=== PATIENT | female | born 1975 | race Caucasian/White ===

== ENCOUNTER 2016-12-08 15:11 | Inpatient (IN) | payer OTHER ==
[~2016-12-08] VITALS: Ht 160 cm; Wt 84.1 kg
[2016-12-08] MEDS ORDERED: SODIUM CHLORIDE 0.9% 1,000ML IVBOLUS ONE (15:30)
[2016-12-08] MEDS ORDERED: SODIUM CHLORIDE FLUSH 10ML SYR IVF ONE (15:30)
[2016-12-08] MEDS ORDERED: ONDANSETRON 2MG/ML, 2ML IVPush ONE (15:30)
[2016-12-08 16:41] LABS: HEMOGLOBIN 13.6 g/dL (11.7-16.4); WHITE BLOOD COUNT 12.7 x10^3/uL (3.4-10)
[2016-12-08 16:43] LABS: ASPARTATE AMINO TRANSFERASE 21 U/L (15-37); BLOOD UREA NITROGEN 5 mg/dL (7-18)
[2016-12-08] MEDS ORDERED: ONDANSETRON 2MG/ML, 2ML ONE (18:14)
[2016-12-08] MEDS ORDERED: morphine SULFATE 10 MG/ML, 1ML ONE ×2 (18:23→20:43)
[2016-12-08 18:28] LABS: PATH.CAST-FLAG NOT PRESENT; SPERM-FLAG NOT PRESENT; SRC-FLAG NOT PRESENT; XTAL-FLAG NOT PRESENT; YLC-FLAG NOT PRESENT
[2016-12-08] MEDS: MORPHINE SULFATE 4 MG/ML, 1ML IVPush PRN ×2 (18:30→20:46)
[2016-12-08] MEDS ORDERED: OMNIPAQUE 350 MG/ML, 100ML BOTTLE ONE (19:22)
[2016-12-08] MEDS ORDERED: LABETALOL 5MG/ML, 20ML IVPush PRN (21:00)
[2016-12-08] MEDS ORDERED: ACETAMINOPHEN 325 MG TABLET PO PRN (21:00)
[2016-12-08] MEDS: NICOTINE 14MG/24 HR PATCH.TD24 TD SCH (21:00)
[2016-12-08] MEDS ORDERED: TEMAZEPAM 15 MG CAPSULE PO PRN (21:00)
[2016-12-08] MEDS: D5%-0.45NACL+KCL 20MEQ 1,000 ML IV SCH (22:26)
[2016-12-08 22:50] VITALS: BP 132/81
[2016-12-08] MEDS: FAMOTIDINE 20 MG/2 ML IVPush SCH (23:32)
[2016-12-08] MEDS: morphine SULFATE 10 MG/ML, 1ML IVPush PRN (23:41)
[2016-12-09] MEDS: morphine SULFATE 10 MG/ML, 1ML IVPush PRN ×6 (02:46→20:34)
[2016-12-09 04:00] VITALS: BP 122/69
[2016-12-09 04:36] LABS: HEMATOCRIT 34.3 % (34.6-47.8); HEMOGLOBIN 11.8 g/dL (11.7-16.4); WHITE BLOOD COUNT 8.2 x10^3/uL (3.4-10)
[2016-12-09 04:49] LABS: BLOOD UREA NITROGEN 4 mg/dL (7-18)
[2016-12-09 04:54] LABS: ASPARTATE AMINO TRANSFERASE 35 U/L (15-37)
[2016-12-09] MEDS: D5%-0.45NACL+KCL 20MEQ 1,000 ML IV SCH (06:01)
[2016-12-09] MEDS: FAMOTIDINE 20 MG/2 ML IVPush SCH ×2 (09:01→20:30)
[2016-12-09 13:08] LABS: HIV 1&2 ANTIBODY SCREEN Nonreactive (Nonreactive); HIV-1 p24 ANTIGEN Nonreactive (Nonreactive)
[2016-12-09 13:27] LABS: HEP B SURF. AB < 3.1 mIU/mL (0.0-10.0)
[2016-12-09 15:24] LABS: RAPID INFLUENZA A Negative (Negative); RAPID INFLUENZA B Negative (Negative)
[2016-12-09] MEDS: SODIUM CHLORIDE 0.9% 1,000 ML IV SCH (20:31)
[2016-12-09] MEDS: NICOTINE 14MG/24 HR PATCH.TD24 TD SCH (21:00)
[2016-12-10 03:24] LABS: HEMATOCRIT 32.3 % (34.6-47.8); HEMOGLOBIN 11.1 g/dL (11.7-16.4); WHITE BLOOD COUNT 7.7 x10^3/uL (3.4-10)
[2016-12-10 03:26] LABS: ASPARTATE AMINO TRANSFERASE 20 U/L (15-37); BLOOD UREA NITROGEN 4 mg/dL (7-18)
[2016-12-10] MEDS: morphine SULFATE 10 MG/ML, 1ML IVPush PRN ×3 (03:26→11:22)
[2016-12-10 04:00] VITALS: BP 120/62
[2016-12-10] MEDS: SODIUM CHLORIDE 0.9% 1,000 ML IV SCH (05:41)
[2016-12-10] MEDS: FAMOTIDINE 20 MG/2 ML IVPush SCH ×2 (09:22→21:46)
[2016-12-10] MEDS: HYDROcodone/APAP 5/325 TABLET PO PRN ×3 (14:15→22:07)
[2016-12-10 17:51] VITALS: BP 119/72
[2016-12-10 19:22] VITALS: BP 105/70
[2016-12-10] MEDS: NICOTINE 14MG/24 HR PATCH.TD24 TD SCH (21:00)
[2016-12-11 01:34] VITALS: BP 113/74
[2016-12-11] MEDS: HYDROcodone/APAP 5/325 TABLET PO PRN ×4 (04:54→18:04)
[2016-12-11 05:49] LABS: HEMATOCRIT 31.8 % (34.6-47.8); HEMOGLOBIN 10.9 g/dL (11.7-16.4); WHITE BLOOD COUNT 6.3 x10^3/uL (3.4-10)
[2016-12-11 06:02] LABS: BLOOD UREA NITROGEN 6 mg/dL (7-18)
[2016-12-11 06:05] LABS: ASPARTATE AMINO TRANSFERASE 26 U/L (15-37)
[2016-12-11] MEDS: morphine SULFATE 10 MG/ML, 1ML IVPush PRN ×4 (06:17→20:56)
[2016-12-11 07:14] VITALS: BP 111/72
[2016-12-11] MEDS: FAMOTIDINE 20 MG/2 ML IVPush SCH ×2 (09:04→20:55)
[2016-12-11 10:22] LABS: RHEUMATOID FACTOR SCREEN NEGATIVE (NEGATIVE)
[2016-12-11] MEDS ORDERED: MENING VAC A,C,Y,W-135 DIP/PF (MENACTRA AGES 2-55) 0.5 ML IM-VACC ONE (11:30)
[2016-12-11] MEDS ORDERED: FLU VACCINE PER PHARMACY IM ONE (11:30)
[2016-12-11] MEDS ORDERED: DIPHTHERIA-TETANUS ADULT 0.5ML IM-VACC ONE (11:30)
[2016-12-11] MEDS ORDERED: FLU VACC QS2017-18 (36MOS+) UP/PF 0.5 ML IM-VACC ONE (11:30)
[2016-12-11] MEDS ORDERED: [UNRECOGNIZED DRUG - OTHER] MC PRN (11:30)
[2016-12-11] MEDS ORDERED: PNEUMOC 13-VALENT VACC, 0.5 ML IM-VACC ONE (11:30)
[2016-12-11] MEDS ORDERED: HAEMOPH B POLY CONJ-TET TOX/PF 10 MCG/0.5 ML INJ IM-VACC ONE (11:30)
[2016-12-11] MEDS ORDERED: **MANDATORY - MENING,PNEU,HAEMOPH- PICK 1 OF EACH MC PRN (11:30)
[2016-12-11 12:31] VITALS: BP 122/80
[2016-12-11 13:10] LABS: ANA SCREEN POSITIVE (Negative)
[2016-12-11 19:40] VITALS: BP 117/79
[2016-12-11] MEDS: NICOTINE 14MG/24 HR PATCH.TD24 TD SCH (20:56)
[2016-12-12 00:06] LABS: ABSOLUTE CD 4 HELPER 646 /uL (359-1519); HEMATOCRIT 33.2 % (34.0-46.6); HEMOGLOBIN 11.1 g/dL (11.1-15.9); IMMATURE GRANULOCYTES 1 % (Not Estab.); MCH 29.6 pg (26.6-33.0); MCHC 33.4 g/dL (31.5-35.7); MCV 89 fL (79-97); MONOCYTES 10 % (Not Estab.); NEUTROPHILS 68 % (Not Estab.); NEUTROPHILS (ABSOLUTE) 4.6 x10E3/uL (1.4-7.0); PLATELETS 143 x10E3/uL (150-379); RBC 3.75 x10E6/uL (3.77-5.28); RDW 14.5 % (12.3-15.4); WBC 6.7 x10E3/uL (3.4-10.8)
[2016-12-12 01:26] VITALS: BP 126/82
[2016-12-12] MEDS: HYDROcodone/APAP 5/325 TABLET PO PRN ×5 (01:42→21:53)
[2016-12-12 07:30] VITALS: BP 122/84
[2016-12-12] MEDS: FAMOTIDINE 20 MG/2 ML IVPush SCH ×2 (09:19→19:52)
[2016-12-12 10:07] LABS: BARTONELLA HENSELAE IGG Negative titer (Neg:<1:320); BARTONELLA HENSELAE IGM Negative titer (Neg:<1:100); BARTONELLA QUINTANA IGM Negative titer (Neg:<1:100)
[2016-12-12 13:05] VITALS: BP 124/82
[2016-12-12] MEDS ORDERED: MAGNESIUM CITRATE 300ML ORAL SOL PO ONE (15:30)
[2016-12-12 19:35] VITALS: BP 146/87
[2016-12-12] MEDS: ONDANSETRON 2MG/ML, 2ML IVPush PRN (19:51)
[2016-12-12] MEDS: DOCUSATE 100 MG CAPSULE PO SCH (19:52)
[2016-12-12] MEDS: NICOTINE 14MG/24 HR PATCH.TD24 TD SCH (19:54)
[2016-12-12] MEDS ORDERED: OMNIPAQUE 350 MG/ML, 100ML BOTTLE ONE (21:33)
[2016-12-13 01:24] VITALS: BP 117/76
[2016-12-13] MEDS: HYDROcodone/APAP 5/325 TABLET PO PRN ×4 (05:16→19:42)
[2016-12-13 08:45] VITALS: BP 114/59
[2016-12-13] MEDS: FAMOTIDINE 20 MG/2 ML IVPush SCH ×2 (08:46→19:42)
[2016-12-13] MEDS: DOCUSATE 100 MG CAPSULE PO SCH ×2 (08:46→19:42)
[2016-12-13 13:34] VITALS: BP 105/70
[2016-12-13 20:13] VITALS: BP 133/73
[2016-12-13] MEDS: NICOTINE 14MG/24 HR PATCH.TD24 TD SCH (21:00)
[2016-12-14 01:54] VITALS: BP 124/80
[2016-12-14 07:27] VITALS: BP 176/75
[2016-12-14] MEDS: DOCUSATE 100 MG CAPSULE PO SCH ×2 (08:21→20:21)
[2016-12-14] MEDS: FAMOTIDINE 20 MG/2 ML IVPush SCH (08:21)
[2016-12-14] MEDS: HYDROcodone/APAP 5/325 TABLET PO PRN ×3 (09:17→20:21)
[2016-12-14 13:27] VITALS: BP 119/67
[2016-12-14] MEDS: ONDANSETRON 2MG/ML, 2ML IVPush PRN (14:21)
[2016-12-14 19:21] VITALS: BP 125/78
[2016-12-14] MEDS: FAMOTIDINE 20 MG TABLET PO SCH (20:21)
[2016-12-14] MEDS: NICOTINE 14MG/24 HR PATCH.TD24 TD SCH (20:22)
[2016-12-14] MEDS ORDERED: LABETALOL 5MG/ML, 20ML IVPush PRN (22:30)
[2016-12-14] MEDS ORDERED: ACETAMINOPHEN 325 MG TABLET PO PRN (22:30)
[2016-12-15 00:54] VITALS: BP 122/80
[2016-12-15 07:59] VITALS: BP 116/77
[2016-12-15] MEDS: FAMOTIDINE 20 MG TABLET PO SCH ×2 (08:41→20:54)
[2016-12-15] MEDS: DOCUSATE 100 MG CAPSULE PO SCH ×2 (08:41→20:54)
[2016-12-15] MEDS: HYDROcodone/APAP 5/325 TABLET PO PRN ×3 (08:41→20:54)
[2016-12-15 13:59] VITALS: BP 120/78
[2016-12-15] MEDS: ONDANSETRON 2MG/ML, 2ML IVPush PRN ×2 (14:46→20:54)
[2016-12-15 18:55] VITALS: BP 130/80
[2016-12-15] MEDS: NICOTINE 14MG/24 HR PATCH.TD24 TD SCH (21:00)
[2016-12-15] MEDS: morphine SULFATE 10 MG/ML, 1ML IVPush PRN (23:56)
[2016-12-16 02:27] VITALS: BP 118/81
[2016-12-16] MEDS: ONDANSETRON 2MG/ML, 2ML IVPush PRN ×3 (04:21→14:59)
[2016-12-16] MEDS: HYDROcodone/APAP 5/325 TABLET PO PRN ×3 (04:22→12:43)
[2016-12-16 07:45] VITALS: BP 107/68
[2016-12-16] MEDS: FAMOTIDINE 20 MG TABLET PO SCH ×2 (08:39→19:58)
[2016-12-16] MEDS: DOCUSATE 100 MG CAPSULE PO SCH ×2 (08:40→19:58)
[2016-12-16 10:06] LABS: HGB A 56.8 % (94.0-98.0); HGB A2 3.2 % (0.7-3.1)
[2016-12-16 13:56] VITALS: BP 125/87
[2016-12-16] MEDS: morphine SULFATE 10 MG/ML, 1ML IVPush PRN ×2 (18:19→18:47)
[2016-12-16 20:00] VITALS: BP 107/69
[2016-12-16] MEDS: NICOTINE 14MG/24 HR PATCH.TD24 TD SCH (21:00)
[2016-12-17 02:00] VITALS: BP 123/80
[2016-12-17 07:35] VITALS: BP 109/71
[2016-12-17] MEDS: DOCUSATE 100 MG CAPSULE PO SCH ×2 (07:38→20:28)
[2016-12-17] MEDS: FAMOTIDINE 20 MG TABLET PO SCH ×2 (08:25→20:28)
[2016-12-17] MEDS ORDERED: BUPIVACAINE/PF 0.5% ONE (10:07)
[2016-12-17] MEDS: morphine SULFATE 10 MG/ML, 1ML IVPush PRN ×5 (10:23→23:07)
[2016-12-17] MEDS: ONDANSETRON 2MG/ML, 2ML IVPush PRN ×2 (10:25→21:42)
[2016-12-17 12:37] VITALS: BP 105/71
[2016-12-17] MEDS ORDERED: MIDAZOLAM 1 MG/ML, 2ML ONE (13:03)
[2016-12-17] MEDS ORDERED: FENTANYL PF 100 MCG/2ML ONE ×5 (13:03→17:04)
[2016-12-17] MEDS ORDERED: ROCURONIUM 10 MG/ML,10ML ONE (13:05)
[2016-12-17] MEDS ORDERED: PROPOFOL 10 MG/ML, 20ML ONE (13:05)
[2016-12-17] MEDS ORDERED: CEFAZOLIN 1,000 MG ONE ×2 (13:06)
[2016-12-17] MEDS ORDERED: ACETAMINOPHEN 325 MG TABLET PO PRN (15:00)
[2016-12-17] MEDS ORDERED: hydrALAzine 20 MG/ML, 1ML IV PRN (15:00)
[2016-12-17] MEDS ORDERED: OXYcodone 5 MG/5 ML ORAL.SOL UDC PO PRN (15:00)
[2016-12-17] MEDS ORDERED: LABETALOL 5MG/ML, 20ML IV PRN (15:00)
[2016-12-17] MEDS ORDERED: ONDANSETRON 2MG/ML, 2ML IVPush PRN (15:00)
[2016-12-17] MEDS ORDERED: ONDANSETRON 2MG/ML, 2ML ONE ×3 (15:00→21:40)
[2016-12-17] MEDS ORDERED: PROMETHAZINE 25 MG/ML, 1ML IV PRN (15:00)
[2016-12-17] MEDS ORDERED: MEPERIDINE/PF 25MG/0.5ML IVPush PRN (15:00)
[2016-12-17] MEDS ORDERED: DEXAMETHASONE 4 MG/ML, 1ML ONE ×2 (15:01)
[2016-12-17] MEDS ORDERED: GLYCOPYRROLATE 0.2MG/1ML, 5ML ONE (15:19)
[2016-12-17] MEDS ORDERED: NEOSTIGMINE 1 MG/ML, 10ML ONE (15:19)
[2016-12-17] MEDS ORDERED: BUPIVACAINE/PF 0.5% INFIL ONE (15:32)
[2016-12-17] MEDS: FENTANYL PF 100 MCG/2ML IV PRN ×4 (16:20→17:30)
[2016-12-17] MEDS ORDERED: OXYcodone 5 MG/5 ML ORAL.SOL UDC ONE (16:24)
[2016-12-17] MEDS ORDERED: HYDROmorphone 1 MG/ML, 1ML ONE ×2 (16:34→17:04)
[2016-12-17] MEDS: HYDROmorphone 1 MG/ML, 1ML IV PRN ×6 (16:34→17:46)
[2016-12-17] MEDS ORDERED: PROMETHAZINE 25 MG/ML, 1ML ONE (17:04)
[2016-12-17 18:43] VITALS: BP 125/68
[2016-12-17] MEDS ORDERED: morphine SULFATE 10 MG/ML, 1ML ONE ×4 (19:58→23:05)
[2016-12-17 20:09] VITALS: BP 136/72
[2016-12-17] MEDS: NICOTINE 14MG/24 HR PATCH.TD24 TD SCH (20:29)
[2016-12-18] MEDS ORDERED: HYDROcodone/APAP 5/325 TABLET ONE ×5 (00:12→22:34)
[2016-12-18] MEDS: HYDROcodone/APAP 5/325 TABLET PO PRN ×5 (00:14→22:38)
[2016-12-18 00:19] VITALS: BP 120/62
[2016-12-18] MEDS ORDERED: morphine SULFATE 10 MG/ML, 1ML ONE ×6 (00:29→19:41)
[2016-12-18] MEDS: morphine SULFATE 10 MG/ML, 1ML IVPush PRN ×8 (00:33→19:48)
[2016-12-18 05:10] VITALS: BP 106/69
[2016-12-18 07:54] VITALS: BP 100/65
[2016-12-18] MEDS: DOCUSATE 100 MG CAPSULE PO SCH ×2 (09:00→19:47)
[2016-12-18] MEDS: FAMOTIDINE 20 MG TABLET PO SCH ×2 (09:00→21:00)
[2016-12-18 13:26] VITALS: BP 120/78
[2016-12-18 19:07] VITALS: BP 149/80
[2016-12-18] MEDS: NICOTINE 14MG/24 HR PATCH.TD24 TD SCH (19:51)
[2016-12-19 00:41] VITALS: BP 105/68
[2016-12-19 07:25] VITALS: BP 122/76
[2016-12-19] MEDS ORDERED: HYDROcodone/APAP 5/325 TABLET ONE ×2 (07:41→11:30)
[2016-12-19] MEDS: HYDROcodone/APAP 5/325 TABLET PO PRN ×2 (07:43→11:36)
[2016-12-19] MEDS: FAMOTIDINE 20 MG TABLET PO SCH (09:00)
[2016-12-19 09:54] LABS: HEMATOCRIT 37.3 % (34.6-47.8); HEMOGLOBIN 12.8 g/dL (11.7-16.4); WHITE BLOOD COUNT 14.8 x10^3/uL (3.4-10)
[2016-12-19 09:59] LABS: BLOOD UREA NITROGEN 10 mg/dL (7-18)
[2016-12-19] MEDS ORDERED: [UNRECOGNIZED DRUG - OTHER] IM ONE (10:00)
[2016-12-19] MEDS ORDERED: ONDANSETRON 2MG/ML, 2ML ONE (11:31)
[2016-12-19] MEDS: ONDANSETRON 2MG/ML, 2ML IVPush PRN (11:36)
[2016-12-19] MEDS: DOCUSATE 100 MG CAPSULE PO SCH ×2 (11:36→21:27)
[2016-12-19 13:53] VITALS: BP 102/64
[2016-12-19] MEDS ORDERED: MAGNESIUM CITRATE 300ML ORAL SOL PO ONE (17:37)
[2016-12-19] MEDS ORDERED: METHYLNALTREXONE 12 MG/0.6 ML SQ SCH (18:00)
[2016-12-19 19:20] VITALS: BP 111/71
[2016-12-19] MEDS ORDERED: FAMOTIDINE 20 MG TABLET PO SCH (21:00)
[2016-12-19] MEDS: NICOTINE 14MG/24 HR PATCH.TD24 TD SCH (21:27)
[2016-12-19] MEDS ORDERED: ACETAMINOPHEN 325 MG TABLET PO PRN (21:30)
[2016-12-19] MEDS ORDERED: TEMAZEPAM 15 MG CAPSULE PO PRN (21:30)
[2016-12-19] MEDS ORDERED: ONDANSETRON 2MG/ML, 2ML IVPush PRN (21:30)
[2016-12-19] MEDS ORDERED: morphine SULFATE 10 MG/ML, 1ML IVPush PRN (21:30)
[2016-12-20] MEDS: FAMOTIDINE 20 MG TABLET PO SCH ×2 (00:04→08:31)
[2016-12-20 00:55] VITALS: BP 118/68
[2016-12-20] MEDS ORDERED: KETOROLAC 30 MG/1 ML IVPush ONE (06:30)
[2016-12-20] MEDS ORDERED: POTASSIUM CHLORIDE 20 MEQ TAB.ER.PRT PO ONE (06:30)
[2016-12-20 07:19] VITALS: BP 117/77
[2016-12-20] MEDS: DOCUSATE 100 MG CAPSULE PO SCH (08:31)
[2016-12-20] MEDS ORDERED: POLYETHYLENE GLYCOL 17 GM PACKET PO SCH (09:00)
[2016-12-20] MEDS ORDERED: HYDROcodone/APAP 5/325 TABLET ONE (12:35)
[2016-12-20] MEDS: HYDROcodone/APAP 5/325 TABLET PO PRN (12:37)
[2016-12-20] MEDS ORDERED: DOCU-131 PO (14:55)
[2016-12-20] MEDS ORDERED: POLY17PO5 PO (14:55)
[2016-12-20] MEDS ORDERED: HYDR-3240 PO (14:55)
[2016-12-20 15:36] VITALS: BP 106/79
== END 2016-12-20 15:45 | disposition home or self-care (01) | DRG 800 ==
LOC: ED 20:53 → EDIP 20:54 → ED 21:13 → CCU 21:36 → 4WST 12-10 17:46 → 4NOR 12-17 18:50 → UNDODISIN 12-17 19:24
PROVIDERS: ADMIT Internal Medicine; ATTEND Internal Medicine
PROC: 07TP4ZZ Resection of Spleen, Percutaneous Endoscopic Approach (ICD-10-PCS; principal; 2016-12-17 15:00)
DX: D73.5 Infarction of spleen (principal); R65.10 Systemic inflammatory response syndrome (SIRS) of non-infectious origin without acute organ dysfunction; D69.3 Immune thrombocytopenic purpura; D58.0 Hereditary spherocytosis; D72.829 Elevated white blood cell count, unspecified; F12.90 Cannabis use, unspecified, uncomplicated; F17.210 Nicotine dependence, cigarettes, uncomplicated; K59.00 Constipation, unspecified; K66.0 Peritoneal adhesions (postprocedural) (postinfection); R00.0 Tachycardia, unspecified; Z82.49 Family history of ischemic heart disease and other diseases of the circulatory system; Z90.49 Acquired absence of other specified parts of digestive tract; Z23 Encounter for immunization
CPT/HCPCS: 36415; 74160; 74177; 76705; 80048; 80053; 81001; 81270; 83010; 83021; 83615; 83690; 83735; 84100; 84703; 85018; 85025; 85045; 85610; 85651; 85660; 85730; 86038; 86039; 86308; 86361; 86430; 86592; 86611; 86644; 86645; 86665; 86703; 86706; 86803; 86880; 87040; 87081; 87086; 87340; 87400; 87496; 87899; 88305; 90648; 90686; 90714; 90734; 93005; 96361; 96374; 96375; 96376; J0690; J1100; J1170; J1885; J2250; J2405; J2550; J2704; J2710; J3010; J3490; Q9967; G0009; G0435; J2270; J3480; J7030; S0028